=== PATIENT | female | born 1955 | race Caucasian/White ===

== ENCOUNTER 2017-09-14 09:10 | Day surgery (SDC) | payer OTHER | END 2017-09-14 12:40 | disposition home or self-care (01) | LOC: GIL 09:10 | DX: Z12.11 Encounter for screening for malignant neoplasm of colon (principal); D12.3 Benign neoplasm of transverse colon; K64.8 Other hemorrhoids; I10 Essential (primary) hypertension | CPT/HCPCS: 45380; 88305 ==